=== PATIENT | male | born 1950 | race Caucasian/White ===

== ENCOUNTER → 2017-02-06 | Outpatient (CLI) | payer BC ==
--- NOTE | 2017-02-06 18:50 | PN ---
This patient is coming in for a compliancy check regarding his obstructive sleep apnea. He was diagnosed having severe DESMOND with an AHI of 95.9 and severe nocturnal oxygen desaturation. He was titrated to a CPAP pressure of 12 cm of water. On today's evaluation, the patient is feeling much better. He is much rested and his sleep ( ) has improved significantly. He seems to be benefitting from CPAP therapy. I reviewed the patient's compliance data that was collected over the past 30 days, and the compliance data showed excellent CPAP use with an average of 6 hours and 51 minutes. Hypopnea index while on treatment is down to 2. His leak is only at 2 L/min and his CPAP use for more than 4 hours is 100%. He is using a Simplus full face mask. He has no specific complaints otherwise for now and his treatment is successful. [place] score is down to 3. His current vitals: His blood pressure is 145/76, pulse 76, respirations 16, temperature 98.1. Weight is 284, saturation 97% on room air. GENERAL APPEARANCE: Calm, comfortable. HEENT: Short neck, crowding of the posterior pharynx. No goiter or neck mass. LUNGS: Clear to auscultation. HEART: Sounds are regular rate and rhythm. Normal S1, S2. ABDOMEN: Soft, nontender. No organomegaly. EXTREMITIES: No edema. No cyanosis, or clubbing. IMPRESSION: 1. Severe symptomatic obstructive sleep apnea with an AHI of 95.9. The patient is receiving successful CPAP therapy at a pressure of 12 cm of water. 2. Severe nocturnal oxygen desaturation recovered with CPAP therapy. 3. Severe sleep fragmentation, improved with CPAP therapy. 4. Obesity. 5. Hypertension. 6. Hypothyroidism. 7. Hypersomnia, improved. [place] score is down to 3. PLAN: The patient is compliant. Clinically improved. Continue weight loss. Encourage implementing good sleep hygiene measures. See me back in a year's time in follow-up.
== END | disposition home or self-care (01) ==
LOC: SLEEP 15:07
PROVIDERS: ATTEND Internal Medicine Critical Care Medicine
DX: G47.33 Obstructive sleep apnea (adult) (pediatric) (principal); E66.9 Obesity, unspecified; I10 Essential (primary) hypertension; E03.9 Hypothyroidism, unspecified; G47.10 Hypersomnia, unspecified

== ENCOUNTER → 2017-07-11 | Outpatient (CLI) | payer BC ==
--- NOTE | 2017-07-11 15:59 | US ---
EXAMINATION TYPE: US kidneys/renal and bladder DATE OF EXAM: 07/11/2017 COMPARISON: NONE CLINICAL HISTORY: R82.8 Abnormal Urine Cytology. Frequent urination EXAM MEASUREMENTS: Right Kidney: 12.1 x 6.2 x 5.1 cm Left Kidney: 12.3 x 6.4 x 7.0 cm Post Void Residual Volume: 167.9 mL Right Kidney: No hydronephrosis or masses seen Left Kidney: No hydronephrosis or masses seen Bladder: wnl Bilateral Jets seen: Yes Normal Post Void Residual: No Transient left pelvic pelvocaliectasis is noted during the examination. IMPRESSION: No evidence of nephrolithiasis or hydronephrosis. CT urogram could be performed for further evaluatio n a patient with abnormal urine cytology.
== END | disposition home or self-care (01) ==
LOC: RADUSWWP 15:19
PROVIDERS: ATTEND Family Medicine
DX: R82.8 Abnormal findings on cytological and histological examination of urine (principal)
CPT/HCPCS: 76770

== ENCOUNTER 2018-03-11 08:44 | Day surgery (SDC) | payer BC ==
[2018-03-07 11:28] VITALS: BMI 38.0
[~2018-03-11 08:44] MED LIST: LACTATED RINGERS 1,000 ML IV SCH
[2018-03-11] MEDS ORDERED: LIDOCAINE 1% 20 ML VIAL (10MG/ML) FOR IV START INTRADERMA ONE (09:49)
[2018-03-11 09:53] VITALS: RESP 16; TEMP 97.5
[2018-03-11] MEDS ORDERED: MIDAZOLAM 2 MG/2 ML VIAL ONE (10:38)
[2018-03-11] MEDS ORDERED: fentaNYL (PF) 50 MCG/ML 2 ML AMP ONE (10:38)
[2018-03-11] MEDS ORDERED: LIDOCAINE 1% INJ 10MG/ML (20 ML MDV) ONE (10:38)
[2018-03-11] MEDS ORDERED: PROPOFOL 10 MG/ML 20 ML VIAL IV ONE (10:38)
[2018-03-11 11:06] VITALS: BP 116/70; PULSE 65
--- NOTE | 2018-03-11 11:08 | P.PCN ---
Date of Procedure: 03/11/18 Procedure(s) Performed: Procedure: Total colonoscopy. Preoperative diagnosis: Screening for neoplasia. Postoperative diagnosis: Sigmoid diverticulosis with no evidence of acute diverticulitis, strictures, polyps or cancer. Preparation: HalfLytely prep. Sedation: Was provided by anesthesia. Brief clinical history: The patient is a 68-year-old male who is scheduled for this evaluation for screening for neoplasia because of history of polyps. His prior exam was more than 10 years ago. The patient has no abdominal complaints , change in bowel habits or anemia. He occasionally sees blood on the stools when he has a hard bowel movement. Procedure: With the patient on his left lateral decubitus position and after informed consent and adequate sedation, the perianal area was inspected and it did not show any fissures or fistulas. There were no masses felt on digital rectal examination. The Olympus CFQ 160L video colonoscope was then inserted in the rectum in the usual fashion and advanced to the cecum. There were multiple diverticular orifices seen scattered in the sigmoid with no evidence of acute diverticulitis or strictures. No polyps or tumors were seen. The mucosa appeared healthy. I retroflexed the endoscope in the rectum before the endoscope was withdrawn. Low-grade internal hemorrhoids were noted with no evidence of bleeding. The patient tolerated the procedure well. Plan: The patient was reassured. Discussed dietary measures. I suggested repeat exam in 10 years.
== END 2018-03-11 12:18 | disposition home or self-care (01) ==
LOC: ORWHC2ENDO 08:44
DX: Z12.11 Encounter for screening for malignant neoplasm of colon (principal); K57.30 Diverticulosis of large intestine without perforation or abscess without bleeding; K64.8 Other hemorrhoids; I10 Essential (primary) hypertension; G47.33 Obstructive sleep apnea (adult) (pediatric); N40.0 Benign prostatic hyperplasia without lower urinary tract symptoms; E07.9 Disorder of thyroid, unspecified; Z99.89 Dependence on other enabling machines and devices; Z86.010 Personal history of colon polyps; Z79.899 Other long term (current) drug therapy
CPT/HCPCS: 45378; J2250; J2001; J3010; J2704

== ENCOUNTER → 2018-03-12 | Outpatient (CLI) | payer BC ==
--- NOTE | 2018-03-12 16:21 | PN ---
PROGRESS NOTE This is a pleasant 68-year-old male patient with established diagnosis of obstructive sleep apnea with an AHI of 95.9. The patient is coming in for a yearly check. He continues to receive CPAP therapy at a pressure of 12 cm of water. He has been very compliant to CPAP treatment and he has been using it without any interruption over the past 1 year. Based on the compliance data that was collected over the past 30 days. His average CPAP is around 5.6 hours per night. His leak factor is 19 L/minute and his AHI while on treatment is down to 1.1. He is using a medium-sized Simplus full face mask. He has lost around 10 pounds since his last evaluation. No snoring while on CPAP therapy. No major hypersomnia or sleepiness during the day. Treatment again remains quite successful. He wants to keep on the same mask for now. REVIEW OF SYSTEMS: 12-point review of system was done. Positive findings are mentioned above in the history of present illness. No headaches. No angina. No chest pain. No palpitations. No shortness of breath or cough. No nausea, vomiting or diarrhea. No dysuria, frequency, urgency. No focal neurological deficits. No altered mentation. No anxiety. No depression. No sexual dysfunction. No heart murmur. PHYSICAL EXAMINATION: BP is 143/67, pulse 90 respirations 16, temperature 97.7. Saturation 95% on room air. Weight is 274. Height is 5 feet 11 inches, BMI 38.2. GENERAL APPEARANCE: Calm, comfortable. Head: Atraumatic normocephalic. Neck short supple. There is significant crowding of posterior pharynx. Mallampati class 3-4. LUNGS: Clear to auscultation. HEART: Sounds regular rhythm. Normal S1, S2. No S3. No murmurs. ABDOMEN: Soft, nontender. No organomegaly. EXTREMITIES: No edema. No cyanosis or clubbing. NEUROLOGICAL: Awake and alert x3. There is no focal neurological deficits. PSYCHIATRIC: Negative for anxiety or depression. IMPRESSION: 1. Obstructive sleep apnea, severe, AHI of 95.9, currently on CPAP with a pressure of 12. The patient's treatment continues to be successful. 2. Hypersomnia recovered while on CPAP therapy. 3. Obesity with interval weight loss. Current BMI 38.2. 4. Hypertension. 5. Hypothyroidism. PLAN: 1. Continue CPAP therapy at same level of pressure. 2. Renew his mask and supplies and the patient will be kept on a Simplus full face mask. 3. Encourage further weight loss. 4. See me back in followup in a year's time, earlier if needed. His treatment remains successful. SHABNAM / JOSH: [id number] /
== END | disposition home or self-care (01) ==
LOC: SLEEP 15:19
PROVIDERS: ATTEND Internal Medicine Critical Care Medicine
DX: G47.33 Obstructive sleep apnea (adult) (pediatric) (principal); E66.9 Obesity, unspecified; I10 Essential (primary) hypertension; E03.9 Hypothyroidism, unspecified; Z99.89 Dependence on other enabling machines and devices; Z68.38 Body mass index [BMI] 38.0-38.9, adult

== ENCOUNTER → 2019-03-18 | Outpatient (CLI) | payer BC ==
--- NOTE | 2019-03-18 15:31 | SFUN ---
SLEEP CENTER FOLLOW UP NOTE A 69-year-old, male patient coming for an annual check regarding his DESMOND. He has severe DESMOND with an AHI of 95.9. He is on a CPAP pressure of 12 cm of water. His weight has remained stable at 274. He is not snoring while on the CPAP and using a Simplus full-face mask. His compliance data shows that the patient has been using the CPAP on an average of 5.7 hours per night with an AHI of 0.8 while on treatment. No major hypersomnia or sleepiness during the day. He has used his CPAP more than 95% of the time over the past 30 days. No complaints otherwise. No new onset of medical problems and comorbidities. He is on the same medications. No tiredness or sleepiness during the day. He is waking up refreshed and alert during the day. His [place] score is only at 2. REVIEW OF SYSTEMS: A 14-point review of system was done. Positive findings are mentioned above in history of present illness. PHYSICAL EXAMINATION: BP is 137/62, pulse is 70, respirations 16, temperature 98.4, weight 274. Height is 5, 11, saturation 96% on room air. GENERAL APPEARANCE: Calm, comfortable. HEAD: Atraumatic, normocephalic. NECK: Supple. There is no JVD. No goiter or neck mass. Mallampati class IV. LUNGS: Clear to auscultation. HEART: Sounds regular rate and rhythm. Normal S1, S2. No S3. No murmurs. ABDOMEN: Soft, nontender. EXTREMITIES: No edema. No cyanosis or clubbing. NEUROLOGICALLY: He is alert and oriented x3. No focal neurological deficits. PSYCHIATRIC: Negative for anxiety or depression. SKIN: Negative for any wounds or ulceration. IMPRESSION: 1. Severe obstructive sleep apnea with an apnea-hypopnea index of 95, currently on CPAP pressure of 12. 2. Hypersomnia, recovered. 3. Hypertension. 4. Benign prostatic hypertrophy. 5. Hypothyroidism. PLAN: The patient continues to be extremely compliant. Continue CPAP therapy at the same level of pressure. Continue same mask interface. Renew of his supplies. See me back in a few years time in followup. Treatment was successful. MMODL / IJN: [id number] /
== END ==
LOC: SLEEP 14:19
PROVIDERS: ATTEND Internal Medicine Critical Care Medicine
DX: G47.33 Obstructive sleep apnea (adult) (pediatric) (principal); I10 Essential (primary) hypertension; N40.0 Benign prostatic hyperplasia without lower urinary tract symptoms; E03.9 Hypothyroidism, unspecified; Z99.89 Dependence on other enabling machines and devices

== ENCOUNTER → 2019-07-29 | Outpatient (CLI) | payer BC ==
--- NOTE | 2019-07-29 09:44 | US ---
EXAMINATION TYPE: US prostate transrectal DATE OF EXAM: 07/29/2019 COMPARISON: NONE CLINICAL HISTORY: R97.20 ELEV PROSTATE SPECIFIC ANTIGEN. No urinary symptoms. This examination was performed using the transrectal probe. EXAM MEASUREMENTS: Gland Size: 6.1 x 5.4 x 4.2 cm Volume: 71.6 Predicted PSA: 8.6 Actual PSA (if available):1.45 Peripheral zone appears heterogenous with no prominent masses or lesions visualized at this time. Pr ostate appears enlarged in size. Seminal vesicles towards end of study are unremarkable. IMPRESSION: Markedly enlarged heterogeneous prostate gland consistent with BPH. No suspicious nodule s. Predicted PSA = volume x 0.12 ng/ml Calculated Volume = 0.5236 x L x W x H
== END | disposition home or self-care (01) ==
LOC: RADUSWWP 08:54
PROVIDERS: ATTEND Family Medicine
DX: N40.0 Benign prostatic hyperplasia without lower urinary tract symptoms (principal)
CPT/HCPCS: 76872

== ENCOUNTER → 2020-12-14 | Outpatient (CLI) | payer BC ==
--- NOTE | 2020-12-14 12:57 | PN ---
PROGRESS NOTE Thai is coming to see me for an annual check regarding his obstructive sleep apnea. He is 70 years of age and he has severe DESMOND with an AHI of 95 and continues to be on CPAP pressure of 12 cm of water. He is still doing well. Blood pressure is under good control. No cardiovascular complications. Sleeping well. Averaging around 5.7 hours of CPAP use per night. Based on the compliance data that was collected over the past 30 days. CPAP use for more than 4 hours is above 90%. Leak is noted of 6 L/minute and his AHI is down to 1.21 while on treatment. His weight is stable at 271. He is on a combination of lisinopril for hypertension, levothyroxine for hypothyroidism and tamsulosin for BPH. He is a nonsmoker for now. Doing well. No specific complaints. He is using a Simplus full-face mask. REVIEW OF SYSTEMS: Fourteen-point review of system was done. Positive findings were mentioned in history of present illness. Of significance is that the patient is still benefitting from the treatment. He is waking up refreshed and alert during the day. Sleepiness has subsided and he has no tiredness or sleepiness during the day. His current [place] score is only at 2. PHYSICAL EXAMINATION: VITAL SIGNS: BP is 146/63, pulse 66, respirations 16, temperature 97.5, saturation 95% on room air. GENERAL APPEARANCE: Calm, comfortable. HEAD: Atraumatic, normocephalic. NECK: Supple. No JVD. No goiter or neck masses. LUNGS: Clear to auscultation. HEART: Heart sounds are regular rate and rhythm. Normal S1, S2. No S3, no S4. No murmurs. ABDOMEN: Soft, nontender. No organomegaly. EXTREMITIES: No edema. No cyanosis or clubbing. NEUROLOGIC: Awake and alert. There is no focal neurological deficit. IMPRESSION: 1. Severe obstructive sleep apnea with AHI of 95, continues to be successfully treated with a CPAP pressure of 12 cm of water using a Simplus full-face mask. 2. Hypertension, well controlled. 3. Benign prostatic hypertrophy, on tamsulosin. 4. Hypothyroidism. 5. Hypersomnia, recovered. [place] score is down to 3. PLAN: Continue same treatment. Refill the supplies. Keep the Simplus full face mask. Keep the same level of pressure of 12. Encourage weight loss. Implement good sleep hygiene measures. We will continue to follow. MMODL / IJN: [id number] /
== END | disposition home or self-care (01) ==
LOC: SLEEP 11:19
PROVIDERS: ATTEND Internal Medicine Critical Care Medicine
DX: G47.33 Obstructive sleep apnea (adult) (pediatric) (principal); G47.10 Hypersomnia, unspecified; I10 Essential (primary) hypertension; N40.0 Benign prostatic hyperplasia without lower urinary tract symptoms; E03.9 Hypothyroidism, unspecified; Z99.89 Dependence on other enabling machines and devices

== ENCOUNTER → 2022-03-14 | Outpatient (CLI) | payer BC ==
--- NOTE | 2022-03-14 16:38 | P.PN ---
Subjective Progress Note Date: 03/14/22 This is a pleasant 72-year-old new patient with known history of severe obstructive sleep apnea. The patient is a long-time CPAP use and has been using the machine for more than 5 years. The patient is doing well. No specific complaints. The patient has been very compliant with CPAP therapy over the y ears. The patient has been utilizing the machine at the pressure of 12 cm of water. 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 For now, his compliancy. Over the past 30 days indicates that the patient has been utilizing the machine every night without interruption and is been achieving more than 4 hours 28 over the past 30 days. His been averaging about 5.7 hours of CPAP use per night and the leak is in order of 11 L per minute and his AHI is down to 0.8 and the patient is using a Simplus fullface mask medium-sized. No issues with blood pressure. No issues with artery disease, angina, palpitation, stroke. No issues with weight gain. No other significant issues over the past 12 months. His [place] score is current. 1. He denies falling asleep while driving. He has no issues with sleep initiation or maintenance. His sleep quality is good. Objective - Exam BP is 143/90, pulse is 76, respirations 16, temperature 97.2, saturation 97% on room air, weight is 272 and an [place] score is at 1. The patient appeared well nourished and normally developed. Vital signs as documented. Head exam is unremarkable. No scleral icterus or corneal arcus noted. Neck is without jugular venous distension, thyromegaly, or carotid bruits. Carotid upstrokes are brisk bilaterally. Lungs are clear to auscultation and percussion. Cardiac exam reveals the PMI to be normally sized and situated. Rhythm is regular. First and second heart sounds normal. No murmurs, rubs or gallops. Abdominal exam reveals normal bowel sounds, no masses, no organomegaly and no aortic enlargement. Extremities are nonedematous and both femoral and pedal pulses are normal.Examination of the skin revealed no evidence of si gnificant rashes, suspicious appearing nevi or other concerning lesions.Neurologically, the patient is awake and alert and the patient does not have any focal neurological deficit. Cranial nerves are essentially intact. Assessment and Plan Plan: 1 severe obstructive sleep apnea, AHI 95, maintained on CPAP therapy at a pressure of 12 cm of water, treatment has been successfuland the patient has no complaints and he remains fully alert and awake with [place] score of 1. 2 hypersomnia, recovered with CPAP therapy 3 hypertension 4 BPH 5 hypothyroidism Plan Continue CPAP therapy the same level of pressure which is 12 cm of water. Keep the patient on the Simplus fullface mask medium-sized and refill all of his supplies. Sleep hygiene measures are good. The patient is quite alert and awake. 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 See me back in a years time in follow-up.
== END ==
LOC: SLEEP 15:51
PROVIDERS: ATTEND Internal Medicine Critical Care Medicine
DX: G47.33 Obstructive sleep apnea (adult) (pediatric) (principal); E03.9 Hypothyroidism, unspecified; I10 Essential (primary) hypertension; N40.0 Benign prostatic hyperplasia without lower urinary tract symptoms; Z99.89 Dependence on other enabling machines and devices